=== PATIENT | female | born 1965 | race Caucasian/White ===

== ENCOUNTER 2024-05-02 16:50 | Emergency (ER) | payer MEDICARE ==
[~2024-05-02] VITALS: Ht 167.6 cm; Wt 79.5 kg
[2024-05-02] MEDS ORDERED: CILOXAN OP (17:36)
[2024-05-02 18:00] VITALS: BP 144/81
== END 2024-05-02 18:00 | disposition home or self-care (01) ==
LOC: ED 16:50
DX: S05.01XA Injury of conjunctiva and corneal abrasion without foreign body, right eye, initial encounter (principal); Z77.098 Contact with and (suspected) exposure to other hazardous, chiefly nonmedicinal, chemicals; X58.XXXA Exposure to other specified factors, initial encounter; Y92.89 Other specified places as the place of occurrence of the external cause; Y99.0 Civilian activity done for income or pay